=== PATIENT | male | born 1990 | race Caucasian/White ===

== ENCOUNTER 2017-02-16 14:44 | Emergency (ER) | payer OTHER ==
[~2017-02-16] VITALS: Ht 177.8 cm; Wt 104.0 kg
[2017-02-16 15:42] VITALS: Ht 177.8 cm; Wt 104.0 kg
[2017-02-16 18:06] VITALS: BP 130/84
== END 2017-02-16 18:06 | disposition home or self-care (01) ==
LOC: ED 14:44
DX: K44.9 Diaphragmatic hernia without obstruction or gangrene (principal); R03.0 Elevated blood-pressure reading, without diagnosis of hypertension